=== PATIENT | male | born 1955 | race Caucasian/White ===

== ENCOUNTER 2020-12-14 10:01 | Emergency (ER) | payer MEDICARE, OTHER ==
[2020-12-14 10:50] LABS: RED BLOOD COUNT 5.48 M/UL (4.20-5.50); WHITE BLOOD COUNT 15.5 K/UL (4.5-11.0)
[2020-12-14 11:14] LABS: BUN/CREATININE RATIO 14 (0-10)
[2020-12-14] MEDS ORDERED: OMNICEF 300 MG300 MG PO (14:45)
[2020-12-14] MEDS ORDERED: ZITHROMAX250 MG PO (14:45)
[2020-12-14] MEDS ORDERED: MEDROL DOSEPAK 24 MG PO (14:45)
[2020-12-14] MEDS ORDERED: PROVENTIL HFA6.7 GM INH (14:45)
== END 2020-12-14 16:51 | disposition home or self-care (01) ==
LOC: ER1 10:01
DX: J44.0 Chronic obstructive pulmonary disease with (acute) lower respiratory infection (principal); J18.9 Pneumonia, unspecified organism; R07.9 Chest pain, unspecified; Z20.822 Contact with and (suspected) exposure to COVID-19
CPT/HCPCS: 0240U; 71045; 80053; 82550; 82553; 83874; 83880; 84484; 85025; 93005; 94640; 94664; 96374; 96375; 99285; J0456; J0696; J2930; J7030